=== PATIENT | female | born 1960 | race Caucasian/White ===

== ENCOUNTER 2022-05-16 16:28 | Emergency (ER) | payer BC, SELFPAY ==
[2022-05-16 16:43] VITALS: BP 147/84; PULSE 70; RESP 18; TEMP 37.2; O2SAT 100
--- NOTE | 2022-05-16 17:24 | ED.URI ---
HPI - URI/Sore Throat General Chief Complaint: Upper Respiratory Infection Stated Complaint: CHEST CONGESTION Time Seen by Provider: 05/16/22 17:14 Source: patient Mode of arrival: ambulatory Limitations: no limitations History of Present Illness HPI Narrative: Patient presents today complaining of an 11 day history of sore throat, nasal congestion, cough, and chest congestion. Denies shortness of breath. She has been using cough suppressants, and albuterol inhaler nebulizer treatments without much relief. Related Data Home Medications Medication Instructions Recorded Confirmed alprazolam 0.25 mg tablet 0.25 mg PO DIRECTED 05/16/22 05/16/22 fluticasone propionate 50 50 mcg intranasal DIRECTED 05/16/22 05/16/22 mcg/actuation nasal spray,suspension Allergies Allergy/AdvReac Type Severity Reaction Status Date / Time amoxicillin Allergy Unknown HIVES Verified 07/11/20 08:50 Cephalosporins Allergy Unknown Rash Unverified 05/16/22 16:57 codeine Allergy Unknown Gastrointestinal Unverified 05/16/22 16:57 Upset hydrocodone Allergy Unknown Itching Verified 05/16/22 16:57 phenazopyridine Allergy Unknown Other Verified 05/16/22 16:57 Sulfa (Sulfonamide Allergy Unknown Itching Verified 05/16/22 16:57 Antibiotics) MACROLIDES Allergy Unknown Other Uncoded 05/16/22 16:57 Review of Systems Review of Systems: CONSTITUTIONAL: Denies body aches, fever, chills, or sweats. EYES: Denies visual changes, redness, or discharge. ENT: Denies rhinorrhea, otalgia.+ congestion, sore throat CARDIOVASCULAR: Denies chest pain, palpitations, or edema. RESPIRATORY: Denies dyspnea.+ cough, chest congestion GASTROINTESTINAL: Denies abdominal pain, nausea, vomiting, or diarrhea. GENITOURINARY: Denies dysuria or hematuria. SKIN: Denies rash, itching, or wounds. MUSCULOSKELETAL: Denies back pain, joint pain, or myalgia. NEUROLOGIC: Denies headache, numbness, tingling, or weakness. PSYCH: Denies depression or anxiety. [facility] Family History Family History Sibling Asthma Patient's sister is in good health Patient's brother is in good health Family history of allergic disorder Family history of malignant neoplasm of thyroid Family history of Hodgkin's lymphoma Father Asthma Patient's father is in good health Mother Patient's mother is in good health Family history of malignant neoplasm of breast in first degree relative Social History Social History Alcohol intake: never Comments At time of signature, I have reviewed and agree with nursing past medical, surgical, social and family history unless otherwise noted. Please see nursing chart for further information. There is no relevant family history pertinent to the presenting complaint Exam Narrative: GENERAL: Mildly ill-appearing, well-nourished, and in no acute distress. HEAD: Normocephalic, atraumatic. EYES: EOMI. No redness or drainage. Conjunctivae normal. ENT: Mucous membranes pink and moist. Nares congested. Bilateral frontal maxillary sinus tenderness. No rhinorrhea. TMs normal bilaterally. Throat normal. Uvula midline. NECK: Normal AROM. Supple. No lymphadenopathy. CHEST: No respiratory distress. Clear to auscultation. HEART: Regular rate and rhythm. No murmur appreciated. Normal peripheral pulses. EXTREMITIES: Normal range of motion. No edema. SKIN: Warm, dry, no rash. Capillary refill normal. Normal skin turgor. NEURO: No focal deficits. Alert and oriented x3. Gait steady. PSYCH: Normal affect. No signs of depression or anxiety. Course Course Level of Care: Express Care Visit Vital Signs Vital signs: Vital Signs Temperature 98.9 F 05/16/22 16:43 Pulse Rate 70 05/16/22 16:43 Respiratory Rate 18 05/16/22 16:43 Blood Pressure 147/84 H 05/16/22 16:43 Pulse Oximetry 100 05/16/22 16:43 Oxygen Delivery R
== END 2022-05-16 17:33 | disposition home or self-care (01) ==
PROVIDERS: Emergency Provider Nurse Practitioner; PCP Physician Assistant
DX: J01.90 Acute sinusitis, unspecified (principal); J40 Bronchitis, not specified as acute or chronic; M19.90 Unspecified osteoarthritis, unspecified site; Z90.13 Acquired absence of bilateral breasts and nipples; Z85.9 Personal history of malignant neoplasm, unspecified
CPT/HCPCS: 99213; G0463

== ENCOUNTER 2022-08-23 00:10 | Day surgery (SDC) | payer BC, OTHER, SELFPAY ==
[2022-08-07 13:09] VITALS: BMI 22.1
--- NOTE | 2022-08-22 11:43 | WPDANESEPPF ---
Anes - Initial Pre Proc Eval Procedure: Operation Date: 08/23/22 08:00 Proposed Procedures p Screening Colonoscopy - Ta Trinidad MD Date/Time: 08/22/22 11:43 Surgeon: Ta Trinidad MD Pre Op Diagnosis: neoplasm screening Patient Data Age: 62 Gender: F Height: 1.73 m Weight: 65.9 kg Allergies Allergy/AdvReac Type Severity Reaction Status Date / Time amoxicillin Allergy Unknown HIVES Verified 08/23/22 06:58 Cephalosporins Allergy Unknown Rash Verified 08/23/22 06:58 codeine Allergy Unknown Gastrointestinal Verified 08/23/22 06:58 Upset hydrocodone Allergy Unknown Itching Verified 08/23/22 06:58 phenazopyridine Allergy Unknown Other Verified 08/23/22 06:58 Sulfa (Sulfonamide Allergy Unknown Itching Verified 08/23/22 06:58 Antibiotics) MACROLIDES Allergy Unknown Other Uncoded 08/07/22 13:08 Home Medications Medication Instructions Recorded Confirmed Type alprazolam 0.25 mg tablet 0.25 mg PO DIRECTED 05/16/22 08/23/22 History doxycycline hyclate 100 mg tablet 100 mg PO BID 7 days #14 tabs 05/16/22 08/23/22 Rx fluticasone propionate 50 50 mcg intranasal DIRECTED 05/16/22 08/23/22 History mcg/actuation nasal spray,suspension prednisone 50 mg tablet 50 mg PO DAILY 5 days #5 tabs 05/16/22 08/23/22 Rx Patient hx anesthesia problems: none Family hx anesthesia problems: none Results Review: All pre-operative results and documents have been reviewed as part of the pre-operative evaluation. [facility] Past Medical History Medical History (Updated 08/22/22 @ 16:36 by Ta Trinidad MD) GERD (gastroesophageal reflux disease) History of breast cancer Osteoarthritis PONV (postoperative nausea and vomiting) Surgical History Surgical History (Updated 08/22/22 @ 11:44 by Luis Alberto Swain DO) History of mastectomy Family History Family History Sibling Asthma Patient's sister is in good health Patient's brother is in good health Family history of allergic disorder Family history of malignant neoplasm of thyroid Family history of Hodgkin's lymphoma Father Asthma Patient's father is in good health Mother Patient's mother is in good health Family history of malignant neoplasm of breast in first degree relative Social History Social History Alcohol intake: never Anes - Eval Final PreProcedure Day of Procedure 08/22/22 11:43 Patient weight: normal Heart: regular rate and rhythm Lungs: clear to auscultation and normal air movement Airway: Mallampati scale class II Neurological: alert and oriented Last oral intake: >/= 8 hours ASA classification: II Emergent: no Anesthetic plan: proceed Anesthesia type and monitoring: general GIVS and standard monitoring Results Review: All pre-operative results and documents have been reviewed as part of the pre-operative evaluation. Informed Consent: The patient's anesthetic plan and its attendant risks and benefits were discussed with the patient/family/POA. Questions were solicited and answers provided to the satisfaction of the patient/family/POA.
--- NOTE | 2022-08-22 16:35 | PM.HPGS ---
History of Present Illness History of Present Illness Consent: Risks, benefits, and alternatives have been discussed and questions answered. Patient agrees to proceed with procedure. Chief complaint: neoplasm screening Narrative: Bev Rene is a 62 year old female Referred for colon cancer screening. Review of Systems Review of Systems: All systems reviewed & are unremarkable except as noted in HPI and below PMFSH Past Medical History Medical History GERD (gastroesophageal reflux disease) History of breast cancer Osteoarthritis PONV (postoperative nausea and vomiting) Surgical History Surgical History History of mastectomy Family History Family History Sibling Asthma Patient's sister is in good health Patient's brother is in good health Family history of allergic disorder Family history of malignant neoplasm of thyroid Family history of Hodgkin's lymphoma Father Asthma Patient's father is in good health Mother Patient's mother is in good health Family history of malignant neoplasm of breast in first degree relative Social History Social History Alcohol intake: never Meds Home Medications and Allergies Home Medications Medication Instructions Recorded Confirmed Type alprazolam 0.25 mg tablet 0.25 mg PO DIRECTED 05/16/22 08/23/22 History doxycycline hyclate 100 mg tablet 100 mg PO BID 7 days #14 tabs 05/16/22 08/23/22 Rx fluticasone propionate 50 50 mcg intranasal DIRECTED 05/16/22 08/23/22 History mcg/actuation nasal spray,suspension prednisone 50 mg tablet 50 mg PO DAILY 5 days #5 tabs 05/16/22 08/23/22 Rx Allergies Allergy/AdvReac Type Severity Reaction Status Date / Time amoxicillin Allergy Unknown HIVES Verified 08/23/22 06:58 Cephalosporins Allergy Unknown Rash Verified 08/23/22 06:58 codeine Allergy Unknown Gastrointestinal Verified 08/23/22 06:58 Upset hydrocodone Allergy Unknown Itching Verified 08/23/22 06:58 phenazopyridine Allergy Unknown Other Verified 08/23/22 06:58 Sulfa (Sulfonamide Allergy Unknown Itching Verified 08/23/22 06:58 Antibiotics) MACROLIDES Allergy Unknown Other Uncoded 08/07/22 13:08 Exam Const: General: alert Orientation/consciousness: patient oriented x3 Resp: Auscultation: clear to auscultation bilaterally Cardio: Rhythm: regular rhythm GI: GI Palp: Yes Soft to palpation and No Tenderness to palpation present (GI) Neuro: General: patient oriented x3 Assessment and Plan Assessment and plan (1) Colon cancer screening: Code(s): Z12.11 - Encounter for screening for malignant neoplasm of colon Status: Acute Assessment and Plan: Colonoscopy with possible biopsy or polypectomy or cautery or injection of substances.
[2022-08-23 06:59] VITALS: BP 133/80; PULSE 80; RESP 16; TEMP 36.3; O2SAT 100; BMI 23.0
[2022-08-23] MEDS: LACTATED RINGERS 1,000 ML 150 ML IV CONT (07:14)
[2022-08-23] MEDS: FAMOTIDINE 20 MG/2 ML VIAL IV PUSH (07:53)
[2022-08-23] MEDS: ONDANSETRON INJ 4 MG/2 ML VIAL IV PUSH (07:54)
[2022-08-23 08:18] VITALS: BP 103/60; PULSE 69; RESP 22; O2SAT 100
[2022-08-23 08:28] VITALS: BP 108/72; PULSE 68; RESP 18; O2SAT 100
[2022-08-23 08:38] VITALS: BP 119/80; PULSE 60; RESP 18; O2SAT 100
--- NOTE | 2022-08-23 08:46 | SUR.PHASEII ---
PT NOT FEELING LIKE GETTING UP AND DRESSING , HEADACHE, (NAUSEATED THAT HAS BEEN TREATED), JUST WANTED MORE TIME TO RECOVER
== END 2022-08-23 09:08 | disposition home or self-care (01) ==
PROVIDERS: PCP Physician Assistant; Visit Provider Internal Medicine Gastroenterology
PROC: 0DJD8ZZ Inspection of Lower Intestinal Tract, Via Natural or Artificial Opening Endoscopic (ICD-10-PCS; CPT 45378; principal; 2022-08-23 08:00)
DX: Z12.11 Encounter for screening for malignant neoplasm of colon (principal); Z85.3 Personal history of malignant neoplasm of breast
CPT/HCPCS: 45378; J2405; J2704; J7120